=== PATIENT | male | born 1975 | race Caucasian/White ===

== ENCOUNTER 2025-01-12 13:30 | Emergency (ER) | payer OTHER | END 2025-01-12 17:31 | disposition home or self-care (01) | LOC: ER 13:30 | DX: G43.109 Migraine with aura, not intractable, without status migrainosus (principal); F17.200 Nicotine dependence, unspecified, uncomplicated; Z91.041 Radiographic dye allergy status; Z79.899 Other long term (current) drug therapy; Z59.89 Other problems related to housing and economic circumstances ==